=== PATIENT | female | born 1965 | race American Indian/Alaskan Native ===

== ENCOUNTER 2021-07-03 09:04 | Outpatient (CLI) | payer OTHER ==
--- NOTE | 2021-07-03 11:33 | Mammography Report ---
BILATERAL DIGITAL DIAGNOSTIC MAMMOGRAM WITH CAD , 07/03/2021 RIGHT LIMITED BREAST ULTRASOUND CLINICAL INFORMATION / INDICATION: The patient reports a lump and pain in the right breast. TECHNIQUE: Digital bilateral mammographic imaging was performed. Spot compression views were obtained . Limited ultrasound was performed. This examination was interpreted with the benefit of Computer-Aid ed Detection (CAD) analysis. COMPARISON: None. The patient's prior mammograms were performed at an out of state facility prior to the patient's breast reduction in 2014. FINDINGS: Breast Density: There are scattered areas of fibroglandular density. MAMMOGRAPHIC FINDINGS: Right breast: There is an indistinct density at the 2:00 position middle depth measuring approximatel y 2.5 x 1.9 cm. This corresponds to the patient's area of palpable concern marked by the skin marker. Left breast: No dominant mass, suspicious calcifications, or architectural distortion in the left keya ast. Postsurgical changes from bilateral breast reduction are noted. ULTRASOUND FINDINGS: Targeted ultrasound evaluation was performed of the area of interest. Sonograp hic evaluation of the patient's area of palpable concern at the 2:00 position 6 cm from the nipple de monstrates a hypoechoic mass with indistinct margins which is taller than wide measuring 1.0 x 0.7 x 0.9 cm. This appears slightly smaller than the finding seen on mammography. There is no significant a ssociated vascularity. IMPRESSION: 1. Palpable hypoechoic right breast mass at the 2:00 position as described. This mass may represent m alignancy or fat necrosis from the patient's previous breast reduction surgery. Surgical consultation and ultrasound-guided biopsy are recommended. 2. No mammographic abnormality of the left breast. Follow up recommendation: Biopsy BI-RADS Category 4: Suspicious for Malignancy. A "normal" or negative report should not discourage follow up or biopsy of a clinically significant f inding. A written summary of these findings will be mailed to the patient. The patient will be entered into a mammography reporting system which will generate a reminder letter for the patient's next appointmen t at the appropriate interval. According to the [employer], yearly mammograms are recommended starting at age 40 and continuing as long as a woman is in good health. Breast MRI is recommended for women with an xochitl roximately 20-25% or greater lifetime risk of breast cancer, including women with a strong family his tory of breast or ovarian cancer and women who have been treated for Hodgkin's disease. Signer Name: Natali Sanchez MD Signed: 07/03/2021 11:29 AM Workstation Name: [id number]
== END 2021-07-03 09:05 | disposition home or self-care (01) ==
LOC: MAMMO 09:04
DX: N63.12 Unspecified lump in the right breast, upper inner quadrant (principal)
CPT/HCPCS: 77066

== ENCOUNTER 2021-07-15 13:20 | Outpatient (CLI) | payer OTHER ==
--- NOTE | 2021-07-15 15:35 | Mammography Report ---
DIGITAL DIAGNOSTIC MAMMOGRAM WITH CAD CONVENTIONAL, 07/15/2021 CLINICAL INFORMATION / INDICATION: Post ultrasound-guided biopsy TECHNIQUE: Digital right mammographic imaging was performed. This examination was interpreted with the benefit of Computer-aided Detection analysis. COMPARISON: Right mammogram 07/03/2021 FINDINGS: Breast Density: There are scattered areas of fibroglandular density. Biopsy clip is seen in the upper inner quadrant corresponding to the site of prior concern on ultraso und and mammogram. IMPRESSION: Satisfactory clip placement Follow up recommendation: Per biopsy results Post biopsy imaging. A "normal" or negative report should not discourage follow up or biopsy of a clinically significant f inding. A written summary of these findings will be mailed to the patient. The patient will be entered into a mammography reporting system which will generate a reminder letter for the patient's next appointmen t at the appropriate interval. According to the [employer], yearly mammograms are recommended starting at age 40 and continuing as long as a woman is in good health. Breast MRI is recommended for women with an xochitl roximately 20-25% or greater lifetime risk of breast cancer, including women with a strong family his tory of breast or ovarian cancer and women who have been treated for Hodgkin's disease. Signer Name: Gordon Escamilla MD Signed: 07/15/2021 3:31 PM Workstation Name: [id number]
--- NOTE | 2021-07-15 16:15 | Ultrasound Report ---
ULTRASOUND-GUIDED RIGHT BREAST BIOPSY INDICATION: Palpable painful lesion right breast 2:00 noted on recent ultrasound to have a shadowing possible lesion at this site COMPARISON: Right mammogram and right breast ultrasound 07/03/2021 CONSENT: Procedure was discussed at length in advance with the patient. Possible risks and benefits w ere discussed including the possibility of bleeding. Postbiopsy care was discussed. Opportunity for q uestions was provided. Patient is not on anticoagulant therapy and reports no pertinent allergies. PROCEDURE: Timeout was performed. The area of hypoechogenic tissue and shadowing in the 2:00 position was targeted sonographically. This included real-time scanning by me to visualize this area and diff erentiate from other areas of tissue plane shadowing. Patient has had breast reduction surgery and th e possibility this is an area of scarring most be considered as has been previously discussed. No vas cularity was seen associated with the hypoechogenicity and shadowing in this region. Using aseptic technique and under local anesthesia, with real-time sonographic guidance, the area of interest was biopsied. 4 core specimens were obtained with a 12-gauge Celero biopsy device and sent t o pathology for analysis. A metallic clip was placed at the end of the procedure. Site was secured an d the patient was sent for post biopsy mammogram. Patient tolerated the procedure well and left the d epartment in good condition. IMPRESSION: Successful ultrasound-guided right breast biopsy Signer Name: Gordon Escamilla MD Signed: 07/15/2021 4:11 PM Workstation Name: [id number]
== END 2021-07-15 13:21 | disposition home or self-care (01) ==
LOC: SPVWC 13:20
PROVIDERS: ATTEND Adult Companion
DX: N63.12 Unspecified lump in the right breast, upper inner quadrant (principal); R92.8 Other abnormal and inconclusive findings on diagnostic imaging of breast
CPT/HCPCS: 88305